=== PATIENT | female | born 1990 ===

== ENCOUNTER 2022-01-05 10:04 | Outpatient (CLI) | payer BC, SELFPAY ==
[2022-01-05 13:10] LABS: SARS-CoV-2 RNA PCR Negative (Negative)
== END 2022-01-05 10:05 | disposition home or self-care (01) ==
LOC: CHSLAB 10:08
PROVIDERS: PCP Nurse Practitioner Family; Visit Provider Nurse Practitioner Family
DX: Z20.822 Contact with and (suspected) exposure to COVID-19 (principal)
CPT/HCPCS: C9803; U0003; U0005